=== PATIENT | male | born 1970 | race African-American/Black ===

== ENCOUNTER 2022-05-31 16:21 | Inpatient (IN) | payer OTHER ==
[2022-05-31 18:53] VITALS: BMI 25.0
[2022-05-31] MEDS ORDERED: BISMUTH SUBSALICYLATE 524 MG/30 ML PO PRN (20:09)
[2022-05-31] MEDS ORDERED: BENZOCAINE/MENTHOL (CHLORASEPTIC ) LOZENGE MM PRN (20:09)
[2022-05-31] MEDS ORDERED: ACETAMINOPHEN 325 MG TABLET (FP) PO PRN ×2 (20:09)
[2022-05-31] MEDS ORDERED: LOPERAMIDE HCL 2 MG CAPSULE PO PRN (20:09)
[2022-05-31] MEDS ORDERED: ONDANSETRON *ODT* 4 MG TABLET SL PRN (20:09)
[2022-05-31] MEDS ORDERED: DICYCLOMINE HCL 10 MG CAPSULE PO PRN (20:09)
[2022-05-31] MEDS ORDERED: IBUPROFEN 600 MG TABLET (FP) PO PRN (20:09)
[2022-05-31] MEDS ORDERED: IBUPROFEN 400 MG TABLET (FP) PO PRN (20:09)
[2022-05-31] MEDS ORDERED: chlordiazePOXIDE HCL 25 MG CAPSULE PO PRN (20:09)
[2022-05-31] MEDS ORDERED: MAGNESIUM CITRATE 300 ML BOTTLE PO PRN (20:09)
[2022-05-31] MEDS ORDERED: NICOTINE 10 MG CARTRIDGE (INHALER) IH PRN (20:09)
[2022-05-31] MEDS ORDERED: MAGNESIUM HYDROX 2400MG/30ML ORAL SUSPENSION 30 ML CUP PO PRN (20:09)
[2022-05-31] MEDS ORDERED: MAG HYDROX/AL HYDROX/SIMETH 30 ML UNIT-DOSE CUP PO PRN (20:09)
[2022-05-31] MEDS ORDERED: diphenhydrAMINE HCL 25 MG CAPSULE (FP) PO ONE (21:00)
[2022-05-31] MEDS: MELATONIN 5 MG TABLETS PO SCH (22:00)
[2022-05-31] MEDS ORDERED: hydrOXYzine PAMOATE 25 MG CAPSULE (FP) PO SCH (22:00)
[2022-05-31] MEDS: chlordiazePOXIDE HCL 25 MG CAPSULE PO SCH (22:00)
[2022-05-31] MEDS: THIAMINE HCL 100 MG TABLET (FP) PO SCH (22:00)
[2022-05-31] MEDS: FLUOCINONIDE 0.05% CREAM (15 GM TUBE) TP SCH (23:13)
[2022-06-01] MEDS: diphenhydrAMINE HCL 25 MG CAPSULE (FP) PO PRN ×2 (01:48→10:48)
[2022-06-01] MEDS: chlordiazePOXIDE HCL 25 MG CAPSULE PO SCH ×4 (05:42→22:23)
[2022-06-01] MEDS: PRENATAL VITAMINS W/ FOLIC ACID TABLET (FP) PO SCH (10:45)
[2022-06-01] MEDS: METHOCARBAMOL 500 MG TABLET PO PRN (10:46)
[2022-06-01 11:16] LABS: HEMATOCRIT 38.7 % (35.4-49); HEMOGLOBIN 13.2 GM/dL (11.7-16.9); MCH 28.1 pg (25.7-33.7); MCHC 34.1 g/dl (32.0-35.9); MEAN CELL VOLUME 82.4 fl (80-96); PLATELET COUNT 168 10^3/uL (134-434); RDW 16.5 % (11.9-15.9); WHITE BLOOD COUNT 7.8 K/mm3 (4.0-10.0)
[2022-06-01 12:13] LABS: ALBUMIN 3.3 g/dl (3.4-5.0); CALCIUM 8.9 mg/dL (8.5-10.1)
[2022-06-01 12:14] LABS: BLOOD UREA NITROGEN 12.2 mg/dL (7-18)
[2022-06-01 12:18] LABS: TOT PROT 6.5 g/dl (6.4-8.2)
[2022-06-01 12:19] LABS: BILIRUBIN,TOTAL 0.9 mg/dL (0.2-1)
[2022-06-01] MEDS: FLUOCINONIDE 0.05% CREAM (15 GM TUBE) TP SCH ×4 (12:51→23:55)
[2022-06-01] MEDS ORDERED: COLLOIDAL OATMEAL 1 BAR EACH TP PRN (13:00)
[2022-06-01] MEDS ORDERED: amLODIPine BESYLATE 5 MG TABLET (FP) PO ONE (13:03)
[2022-06-01] MEDS: THIAMINE HCL 100 MG TABLET (FP) PO SCH (22:23)
[2022-06-01] MEDS: MELATONIN 5 MG TABLETS PO SCH (22:24)
[2022-06-02] MEDS: chlordiazePOXIDE HCL 25 MG CAPSULE PO SCH ×4 (05:05→22:03)
[2022-06-02] MEDS: PRENATAL VITAMINS W/ FOLIC ACID TABLET (FP) PO SCH (10:17)
[2022-06-02] MEDS: FLUOCINONIDE 0.05% CREAM (15 GM TUBE) TP SCH ×4 (10:18→22:03)
[2022-06-02] MEDS: METHOCARBAMOL 500 MG TABLET PO PRN (10:18)
[2022-06-02] MEDS: diphenhydrAMINE HCL 25 MG CAPSULE (FP) PO PRN (10:19)
[2022-06-02] MEDS: MELATONIN 5 MG TABLETS PO SCH (22:02)
[2022-06-02] MEDS: THIAMINE HCL 100 MG TABLET (FP) PO SCH (22:02)
[2022-06-03] MEDS ORDERED: chlordiazePOXIDE HCL 10 MG CAPSULE PO PRN
[2022-06-03] MEDS: chlordiazePOXIDE HCL 10 MG CAPSULE PO SCH ×4 (05:17→22:50)
[2022-06-03] MEDS: PRENATAL VITAMINS W/ FOLIC ACID TABLET (FP) PO SCH (10:29)
[2022-06-03] MEDS: METHOCARBAMOL 500 MG TABLET PO PRN (10:30)
[2022-06-03] MEDS: diphenhydrAMINE HCL 25 MG CAPSULE (FP) PO PRN (10:30)
[2022-06-03] MEDS: FLUOCINONIDE 0.05% CREAM (15 GM TUBE) TP SCH ×4 (12:36→23:11)
[2022-06-03] MEDS: MELATONIN 5 MG TABLETS PO SCH (22:50)
[2022-06-03] MEDS: THIAMINE HCL 100 MG TABLET (FP) PO SCH (22:50)
[2022-06-04] MEDS: chlordiazePOXIDE HCL 10 MG CAPSULE PO SCH ×2 (05:18→17:53)
[2022-06-04] MEDS: METHOCARBAMOL 500 MG TABLET PO PRN ×2 (05:20→17:53)
[2022-06-04] MEDS: PRENATAL VITAMINS W/ FOLIC ACID TABLET (FP) PO SCH (10:34)
[2022-06-04] MEDS: FLUOCINONIDE 0.05% CREAM (15 GM TUBE) TP SCH ×3 (10:34→19:27)
[2022-06-04 18:42] VITALS: PULSE 85; TEMP 97.1
[2022-06-04 18:43] VITALS: BP 158/102
[2022-06-04] MEDS ORDERED: cloNIDine HCL 0.1 MG TABLET PO ONE (19:04)
[2022-06-05] MEDS ORDERED: chlordiazePOXIDE HCL 10 MG CAPSULE PO ONE (05:00)
== END 2022-06-04 20:42 | disposition left against medical advice (07) | DRG 894 ==
LOC: YASAS 16:21 → Y3N 19:48 → Y6N 21:24
PROVIDERS: ADMIT Allergy & Immunology; ATTEND Surgery
PROC: HZ2ZZZZ Detoxification Services for Substance Abuse Treatment (ICD-10-PCS; principal; 2022-05-31)
DX: F10.230 Alcohol dependence with withdrawal, uncomplicated (principal); F32.A Depression, unspecified; I10 Essential (primary) hypertension; L30.9 Dermatitis, unspecified; R03.0 Elevated blood-pressure reading, without diagnosis of hypertension; R74.01 Elevation of levels of liver transaminase levels; Z91.011 Allergy to milk products; Z28.310 Unvaccinated for COVID-19
CPT/HCPCS: 36415; 80053; 85027; 86780; 93005; 93010; C9803-CS; J0735; U0003; U0005